=== PATIENT | male | born 1975 | race Caucasian/White ===

== ENCOUNTER 2016-08-24 19:45 | Emergency (ER) | payer SELFPAY ==
[~2016-08-24] VITALS: Ht 190.5 cm; Wt 83.1 kg
[2016-08-24 22:03] VITALS: BP 148/86
== END 2016-08-24 22:04 | disposition home or self-care (01) ==
LOC: EME 19:45
DX: T40.1X1A Poisoning by heroin, accidental (unintentional), initial encounter (principal); S01.01XA Laceration without foreign body of scalp, initial encounter; V68.4XXA Person boarding or alighting a heavy transport vehicle injured in noncollision transport accident, initial encounter; F17.200 Nicotine dependence, unspecified, uncomplicated
CPT/HCPCS: 99281; 99284; J2310

== ENCOUNTER 2017-01-05 23:12 | Inpatient (IN) | payer SELFPAY ==
[~2017-01-05] VITALS: Ht 190.5 cm; Wt 95.5 kg
[2017-01-06 00:29] LABS: MCH 33.8 PG (29.0-34.0); MCV 99.3 FL (86-99); PLATELET COUNT 259 K/uL (156-360); RBC DIS.WIDTH-CV 12.2 % (11.8-14.6); RBC DIS.WIDTH-SD 44.5 % (39-53); RED BLOOD COUNT 4.23 M/uL (4.00-5.50); WHITE BLOOD COUNT 11.7 K/uL (4.1-10.2)
[2017-01-06 00:36] LABS: CHLORIDE 108 mEq/L (99-109); SODIUM 142 mEq/L (136-147)
[2017-01-06 00:39] LABS: GLUCOSE 108 mg/dL (70-99)
[2017-01-06 00:40] LABS: ANION GAP 12 MEQ/L (2-14); TOTAL BILIRUBIN 0.4 mg/dL (0.0-1.0)
[2017-01-06 00:41] LABS: SERUM ETHYL ALCOHOL 21 mg/dL
[2017-01-06 00:42] LABS: ALKALINE PHOSPHATASE 49 IU/L (3-129); GFR ESTIMATE (CALCULATED) > 59 mL/min/
[2017-01-06 00:43] LABS: UREA NITROGEN (BUN) 8 mg/dL (9-23)
[2017-01-06 02:54] LABS: ADD MIUA? NO; BILIRUBIN NEGATIVE; BLOOD NEGATIVE; COLOR YELLOW ((YELLOW)); GLUCOSE (STRIP) NEGATIVE; KETONES NEGATIVE; LEUKOCYTES NEGATIVE; NITRITE NEGATIVE; PROTEIN (STRIP) 30; UROBILINOGEN 0.2 MG/DL (0.2-1.0)
[2017-01-06 03:09] LABS: AMPHETAMINE NEGATIVE (500 ng/mL); BARBITURATES NEGATIVE (200 ng/mL); BENZODIAZEPINES NEGATIVE (150 ng/mL); COCAINE NEGATIVE (150 ng/mL); INTERNAL CONTROLS VALID? YES; METHADONE NEGATIVE (200 ng/mL); METHAMPHETAMINE NEGATIVE (500 ng/mL); OPIATES (MORPHINE) PRESUMPTIVE POSITIVE (100 ng/mL); OXYCODONE NEGATIVE (100 ng/mL); PHENCYCLIDINE NEGATIVE (25 ng/mL); PROPOXYPHENE NEGATIVE (300 ng/mL); THC CANNABINOIDS NEGATIVE (50 ng/mL); TRICYCLIC ANTIDEPRESSANTS NEGATIVE (300 ng/mL)
[2017-01-06 03:10] LABS: ADD MEDTOX COMMENT Y
[2017-01-06 05:21] VITALS: BP 126/76
[2017-01-06 07:36] VITALS: BP 123/73
[2017-01-06 16:00] VITALS: BP 133/88
[2017-01-07 07:53] VITALS: BP 110/69
[2017-01-07 15:38] VITALS: BP 142/97
== END 2017-01-07 19:05 | disposition home or self-care (01) | DRG 882 ==
LOC: EME → EDBD 23:12 → 1WEST 01-06 01:45 → EDOF 01-06 01:45 → ENRESERV 01-06 05:04 → 1WEST 01-06 05:17
PROVIDERS: Emergency Medicine
PROC: 0HQEXZZ Repair Left Lower Arm Skin, External Approach (ICD-10-PCS; principal; 2017-01-06)
DX: F43.25 Adjustment disorder with mixed disturbance of emotions and conduct (principal); S61.512A Laceration without foreign body of left wrist, initial encounter; S66.822A Laceration of other specified muscles, fascia and tendons at wrist and hand level, left hand, initial encounter; X78.9XXA Intentional self-harm by unspecified sharp object, initial encounter; F11.10 Opioid abuse, uncomplicated; Z87.891 Personal history of nicotine dependence
CPT/HCPCS: 80053; 81003; 84999; 85027; 90837; 97150 GO; 99281; 99285; G0480